=== PATIENT | male | born 1965 ===

== ENCOUNTER 2017-06-23 10:30 | Outpatient (CLI) | payer OTHER | END 2017-06-23 17:00 | disposition home or self-care (01) | LOC: RAD 10:30 | DX: J06.9 Acute upper respiratory infection, unspecified (principal) ==

== ENCOUNTER 2017-12-05 10:07 | Outpatient (CLI) | payer OTHER | END 2017-12-05 10:08 | disposition home or self-care (01) | LOC: LAB 10:07 | DX: R97.0 Elevated carcinoembryonic antigen [CEA] (principal) ==

== ENCOUNTER → 2017-12-05 | Outpatient (CLI) | payer OTHER | END | disposition home or self-care (01) | LOC: RAD 10:52 | DX: R07.89 Other chest pain (principal) ==

== ENCOUNTER 2017-12-09 09:13 | Outpatient (CLI) | payer OTHER | END 2017-12-09 09:25 | disposition home or self-care (01) | LOC: TOM 09:13 | DX: R97.0 Elevated carcinoembryonic antigen [CEA] (principal) | CPT/HCPCS: 74177; Q9965 ==

== ENCOUNTER 2018-02-10 09:51 | Outpatient (CLI) | payer OTHER | END 2018-02-10 17:04 | disposition home or self-care (01) | LOC: RAD 09:51 | DX: M24.851 Other specific joint derangements of right hip, not elsewhere classified (principal); M25.561 Pain in right knee ==

== ENCOUNTER 2019-11-10 12:51 | Outpatient (CLI) | payer OTHER | END 2019-11-10 13:00 | disposition home or self-care (01) | LOC: RAD 12:51 | DX: M54.5 Low back pain (principal); M16.0 Bilateral primary osteoarthritis of hip ==

== ENCOUNTER 2024-01-01 11:38 | Outpatient (CLI) | payer OTHER ==
[~2024-01-01 11:38] MED LIST: VOLTAREN ARTHRI20 GM TOP
== END 2024-01-01 11:48 | disposition home or self-care (01) ==
LOC: SONOGRAMA 11:38
PROVIDERS: ATTEND Physical Medicine & Rehabilitation
DX: M25.511 Pain in right shoulder (principal)